=== PATIENT | female | born 1975 | race Caucasian/White ===

== ENCOUNTER 2016-08-27 20:10 | Inpatient (IN) | payer MEDICARE, MEDICAID ==
[2016-08-27] MEDS ORDERED: SODIUM CHLORIDE 0.9% 1,000 ML ONE (22:32)
[2016-08-28] MEDS ORDERED: ORPHENADRINE 60 MG/2 ML AMP ONE (01:50)
[2016-08-28] MEDS ORDERED: ONDANSETRON 4 MG VIAL ONE (01:51)
[2016-08-28] MEDS ORDERED: ACETAMINOPHEN 325 MG TAB PO PRN (02:20)
[2016-08-28] MEDS: FAMOTIDINE 20 MG INJ IV SCH ×2 (02:20→08:58)
[2016-08-28] MEDS ORDERED: SALINE FLUSH 10 ML FLUSH PRN (02:20)
[2016-08-28] MEDS ORDERED: SODIUM CHLORIDE 0.9% 1,000 ML IV SCH (02:55)
[2016-08-28] MEDS: SODIUM CHLORIDE 0.9% FLUSH BAG 500 ML IV SCH (05:04)
[2016-08-28 05:20] VITALS: BP_SYST 98; RESP 16; TEMP 97.1; Wt 89.8 kg
[2016-08-28] MEDS ORDERED: KCL 20 MEQ/15 ML UDC PO ONE (08:30)
[2016-08-28] MEDS: SALINE FLUSH 10 ML FLUSH SCH ×2 (08:57→19:19)
[2016-08-28] MEDS: CEFTRIAXONE 1 GM in SODIUM CHLORIDE 0.9% 50 ML IV SCH (08:57)
[2016-08-28] MEDS: ENOXAPARIN 40 MG/0.4 ML SYR SUBQ SCH (08:57)
[2016-08-28] MEDS: DOCUSATE SOD 100 MG CAP PO SCH ×3 (08:58→20:16)
[2016-08-28 09:02] VITALS: BP_SYST 84; RESP 16; TEMP 97.3
[2016-08-28] MEDS ORDERED: SODIUM CHLORIDE 0.9% 500 ML IV ONE (09:35)
[2016-08-28 10:48] VITALS: BP_SYST 85; RESP 16; TEMP 97.4
[2016-08-28 15:19] VITALS: BP_SYST 104; RESP 18; TEMP 97.4
[2016-08-28] MEDS: CHOLECALCIFEROL 1,000 UNITS TAB PO SCH (16:50)
[2016-08-28] MEDS ORDERED: VENLAFAXINE XR 150 MG CAP PO SCH (16:50)
[2016-08-28] MEDS: MULTIVITS/MINERALS (THERAGRAN M) TAB PO SCH (16:50)
[2016-08-28] MEDS: CYANOCOBALAMIN/FA/PYRIDOX TAB PO SCH (16:50)
[2016-08-28] MEDS: GABAPENTIN 600 MG TAB PO SCH ×2 (16:50→20:17)
[2016-08-28] MEDS: clonazePAM 0.5 MG TAB PO SCH ×2 (16:50→20:17)
[2016-08-28 19:40] VITALS: BP_SYST 106; RESP 15; TEMP 98.3
[2016-08-28] MEDS: VENLAFAXINE XR 75 MG CAP PO SCH (20:16)
[2016-08-28] MEDS: TOPIRAMATE 100 MG TAB PO SCH (20:17)
[2016-08-29] MEDS: FAMOTIDINE 20 MG INJ IV SCH ×2 (02:05→14:08)
[2016-08-29 03:41] VITALS: BP_SYST 101; RESP 20; TEMP 98.2
[2016-08-29] MEDS: SODIUM CHLORIDE 0.9% FLUSH BAG 500 ML IV SCH (05:10)
[2016-08-29 07:10] VITALS: BP_SYST 101; RESP 16; TEMP 97.4
[2016-08-29] MEDS: DOCUSATE SOD 100 MG CAP PO SCH ×2 (09:00→20:37)
[2016-08-29] MEDS: SALINE FLUSH 10 ML FLUSH SCH ×2 (09:23→20:37)
[2016-08-29] MEDS: CEFTRIAXONE 1 GM in SODIUM CHLORIDE 0.9% 50 ML IV SCH (09:24)
[2016-08-29] MEDS: VENLAFAXINE XR 150 MG CAP PO SCH (09:24)
[2016-08-29] MEDS: TOPIRAMATE 100 MG TAB PO SCH ×2 (09:25→20:37)
[2016-08-29] MEDS: CYANOCOBALAMIN/FA/PYRIDOX TAB PO SCH (09:25)
[2016-08-29] MEDS: MULTIVITS/MINERALS (THERAGRAN M) TAB PO SCH (09:25)
[2016-08-29] MEDS: CHOLECALCIFEROL 1,000 UNITS TAB PO SCH (09:25)
[2016-08-29] MEDS: GABAPENTIN 600 MG TAB PO SCH ×3 (09:25→20:38)
[2016-08-29] MEDS: clonazePAM 0.5 MG TAB PO SCH ×3 (09:25→20:38)
[2016-08-29] MEDS: ENOXAPARIN 40 MG/0.4 ML SYR SUBQ SCH (09:26)
[2016-08-29 12:00] VITALS: BP_SYST 103; RESP 16; TEMP 97.7
[2016-08-29 19:17] VITALS: BP_SYST 118; RESP 16; TEMP 97.4
[2016-08-29] MEDS: VENLAFAXINE XR 75 MG CAP PO SCH (20:48)
[2016-08-29] MEDS ORDERED: MISSING DOSE XX ONE (21:00)
[2016-08-29] MEDS ORDERED: MAGNEVIST 15ML IV ONE (21:37)
[2016-08-29] MEDS: CARBAMAZEPINE 200 MG TAB PO SCH (22:02)
[2016-08-29 22:47] VITALS: BP_SYST 124; RESP 16; TEMP 97.4
[2016-08-30] MEDS: FAMOTIDINE 20 MG INJ IV SCH ×2 (02:08→14:36)
[2016-08-30] MEDS: SODIUM CHLORIDE 0.9% FLUSH BAG 500 ML IV SCH (06:15)
[2016-08-30 07:35] VITALS: BP_SYST 93; RESP 16; TEMP 98.3
[2016-08-30] MEDS: CEFTRIAXONE 1 GM in SODIUM CHLORIDE 0.9% 50 ML IV SCH (09:03)
[2016-08-30] MEDS: SALINE FLUSH 10 ML FLUSH SCH ×2 (09:03→20:00)
[2016-08-30] MEDS: VENLAFAXINE XR 150 MG CAP PO SCH (09:04)
[2016-08-30] MEDS: CYANOCOBALAMIN/FA/PYRIDOX TAB PO SCH (09:04)
[2016-08-30] MEDS: GABAPENTIN 600 MG TAB PO SCH ×3 (09:04→20:30)
[2016-08-30] MEDS: clonazePAM 0.5 MG TAB PO SCH ×3 (09:04→20:30)
[2016-08-30] MEDS: DOCUSATE SOD 100 MG CAP PO SCH ×2 (09:04→20:31)
[2016-08-30] MEDS: CHOLECALCIFEROL 1,000 UNITS TAB PO SCH (09:05)
[2016-08-30] MEDS: ENOXAPARIN 40 MG/0.4 ML SYR SUBQ SCH (09:05)
[2016-08-30] MEDS: MULTIVITS/MINERALS (THERAGRAN M) TAB PO SCH (09:05)
[2016-08-30] MEDS: TOPIRAMATE 100 MG TAB PO SCH ×2 (09:06→21:41)
[2016-08-30] MEDS: CARBAMAZEPINE 200 MG TAB PO SCH ×2 (09:07→20:31)
[2016-08-30 11:43] VITALS: BP_SYST 104; RESP 16; TEMP 98.1
[2016-08-30 15:54] VITALS: BP_SYST 113; RESP 16; TEMP 97.8
[2016-08-30] MEDS ORDERED: MISSING DOSE XX ONE ×3 (16:15→20:35)
[2016-08-30 20:10] VITALS: BP_SYST 133; RESP 16; TEMP 98.2
[2016-08-30] MEDS: VENLAFAXINE XR 75 MG CAP PO SCH (20:31)
[2016-08-31] VITALS (7 sets, daily range): BP systolic 98–117; RESP 16–20; TEMP 97.3–98.4
[2016-08-31] MEDS: FAMOTIDINE 20 MG INJ IV SCH (02:20)
[2016-08-31] MEDS: SODIUM CHLORIDE 0.9% FLUSH BAG 500 ML IV SCH (05:45)
[2016-08-31] MEDS: DOCUSATE SOD 100 MG CAP PO SCH ×3 (09:00→20:45)
[2016-08-31] MEDS: CEFTRIAXONE 1 GM in SODIUM CHLORIDE 0.9% 50 ML IV SCH ×2 (09:00→09:06)
[2016-08-31] MEDS: SALINE FLUSH 10 ML FLUSH SCH (09:04)
[2016-08-31] MEDS: ENOXAPARIN 40 MG/0.4 ML SYR SUBQ SCH (09:05)
[2016-08-31] MEDS: clonazePAM 0.5 MG TAB PO SCH ×3 (09:06→20:42)
[2016-08-31] MEDS: CARBAMAZEPINE 200 MG TAB PO SCH ×2 (09:07→20:43)
[2016-08-31] MEDS: MULTIVITS/MINERALS (THERAGRAN M) TAB PO SCH (09:07)
[2016-08-31] MEDS: VENLAFAXINE XR 150 MG CAP PO SCH (09:07)
[2016-08-31] MEDS: CYANOCOBALAMIN/FA/PYRIDOX TAB PO SCH (09:07)
[2016-08-31] MEDS: GABAPENTIN 600 MG TAB PO SCH ×3 (09:07→20:42)
[2016-08-31] MEDS: TOPIRAMATE 100 MG TAB PO SCH ×2 (09:08→20:43)
[2016-08-31] MEDS: CHOLECALCIFEROL 1,000 UNITS TAB PO SCH (09:27)
[2016-08-31] MEDS: PANTOPRAZOLE 40 MG TAB PO SCH (12:27)
[2016-08-31] MEDS: CEFUROXIME 250 MG TAB PO SCH ×2 (12:27→20:42)
[2016-08-31] MEDS ORDERED: MISSING DOSE XX ONE (20:15)
[2016-08-31] MEDS: VENLAFAXINE XR 75 MG CAP PO SCH (20:44)
[2016-09-01 07:12] VITALS: BP_SYST 101; RESP 18; TEMP 97.5
[2016-09-01] MEDS: ENOXAPARIN 40 MG/0.4 ML SYR SUBQ SCH (08:40)
[2016-09-01] MEDS: GABAPENTIN 600 MG TAB PO SCH ×3 (08:40→19:58)
[2016-09-01] MEDS: CYANOCOBALAMIN/FA/PYRIDOX TAB PO SCH (08:40)
[2016-09-01] MEDS: CHOLECALCIFEROL 1,000 UNITS TAB PO SCH (08:41)
[2016-09-01] MEDS: CARBAMAZEPINE 200 MG TAB PO SCH ×2 (08:41→19:59)
[2016-09-01] MEDS: clonazePAM 0.5 MG TAB PO SCH ×3 (08:41→20:00)
[2016-09-01] MEDS: TOPIRAMATE 100 MG TAB PO SCH ×2 (08:41→19:59)
[2016-09-01] MEDS: MULTIVITS/MINERALS (THERAGRAN M) TAB PO SCH (08:41)
[2016-09-01] MEDS: VENLAFAXINE XR 150 MG CAP PO SCH (08:42)
[2016-09-01] MEDS: PANTOPRAZOLE 40 MG TAB PO SCH (08:42)
[2016-09-01] MEDS: DOCUSATE SOD 100 MG CAP PO SCH ×2 (08:42→19:57)
[2016-09-01] MEDS: CEFUROXIME 250 MG TAB PO SCH ×2 (08:45→19:59)
[2016-09-01] MEDS: RIFAXIMIN 550 MG TAB PO SCH ×2 (11:09→19:58)
[2016-09-01] MEDS: OMNIPAQUE 240 MG/ML, 50 ML PO SCH ×2 (12:07→15:03)
[2016-09-01 12:21] VITALS: BP_SYST 112; RESP 16; TEMP 97.3
[2016-09-01 14:58] VITALS: BP_SYST 109; RESP 20; TEMP 97.9
[2016-09-01] MEDS ORDERED: OPTIRAY 350 100 ML VIAL HMH IV ONE (18:46)
[2016-09-01 19:27] VITALS: BP_SYST 110; RESP 18; TEMP 98.1
[2016-09-01 19:49] VITALS: RESP 18
[2016-09-01] MEDS: VENLAFAXINE XR 75 MG CAP PO SCH (20:00)
[2016-09-01 23:23] VITALS: BP_SYST 100; RESP 16; TEMP 97.5
[2016-09-02 03:42] VITALS: BP_SYST 100; RESP 16; TEMP 97.5
[2016-09-02] MEDS ORDERED: MORPHINE 2 MG/ML SYR IV ONE (04:05)
[2016-09-02] MEDS: PANTOPRAZOLE 40 MG TAB PO SCH (06:02)
[2016-09-02 08:14] VITALS: BP_SYST 102; RESP 16; TEMP 97.8
[2016-09-02] MEDS: clonazePAM 0.5 MG TAB PO SCH ×2 (09:00→15:00)
[2016-09-02] MEDS: GABAPENTIN 600 MG TAB PO SCH ×2 (09:00→15:00)
[2016-09-02] MEDS: RIFAXIMIN 550 MG TAB PO SCH (14:56)
[2016-09-02] MEDS: TOPIRAMATE 100 MG TAB PO SCH (14:57)
[2016-09-02] MEDS: CYANOCOBALAMIN/FA/PYRIDOX TAB PO SCH (14:57)
[2016-09-02] MEDS: VENLAFAXINE XR 150 MG CAP PO SCH (14:58)
[2016-09-02] MEDS: CHOLECALCIFEROL 1,000 UNITS TAB PO SCH (14:59)
[2016-09-02] MEDS: MULTIVITS/MINERALS (THERAGRAN M) TAB PO SCH (15:00)
[2016-09-02] MEDS: DOCUSATE SOD 100 MG CAP PO SCH ×2 (15:00→15:06)
[2016-09-02] MEDS: CARBAMAZEPINE 200 MG TAB PO SCH (15:00)
[2016-09-02] MEDS: ENOXAPARIN 40 MG/0.4 ML SYR SUBQ SCH (15:01)
[2016-09-02] MEDS: CEFUROXIME 250 MG TAB PO SCH (15:05)
[2016-09-02 15:12] VITALS: BP_SYST 97; RESP 18; TEMP 97.6
[2016-09-02 16:43] VITALS: BP_SYST 97; RESP 18; TEMP 97.6
== END 2016-09-02 21:18 | disposition home or self-care (01) | DRG 101 ==
LOC: ENRESERV → ENRESERVTM → ENRESERVDT → ER 20:10 → EMR 08-28 02:18 → ENPENDDIS 08-28 02:18 → 5THE 08-28 05:06
PROVIDERS: ADMIT Internal Medicine; ATTEND Internal Medicine
DX: G40.409 Other generalized epilepsy and epileptic syndromes, not intractable, without status epilepticus (principal); K31.84 Gastroparesis; N39.0 Urinary tract infection, site not specified; M77.8 Other enthesopathies, not elsewhere classified; I05.0 Rheumatic mitral stenosis; G50.0 Trigeminal neuralgia; G43.109 Migraine with aura, not intractable, without status migrainosus; M79.1 Myalgia; E66.9 Obesity, unspecified; K58.1 Irritable bowel syndrome with constipation
CPT/HCPCS: 36415; 70450; 70553; 72125; 74177; 78264; 80048; 80051; 80053; 80307; 80320; 81001; 82330; 82533; 82550; 82803; 82950; 83018; 83036; 83735; 84146; 84439; 84443; 85025; 86618; 86701; 87088; 87901; 93005; 94799; 95819; 96361; 96374; 96375; 99223; 99232; 99238